=== PATIENT | male | born 1965 | race Caucasian/White ===

== ENCOUNTER 2022-01-05 07:39 | Inpatient (IN) | payer MEDICAID ==
[~2022-01-05] VITALS: Ht 182.9 cm; Wt 118.2 kg
[2022-01-05] VITALS (12 sets, daily range): BP systolic 116–143; BP diastolic 62–84
[2022-01-05 09:16] LABS: BASOPHILS # (AUTO) 0.1 X10'3 (0-0.2); BASOPHILS % (AUTO) 0.3 % (0-1); EOSINOPHILS % (AUTO) 0.2 % (0-6); HEMOGLOBIN 14.5 g/dl (14.0-17.9); LYMPHOCYTES # (AUTO) 1.6 X10'3 (1.1-4.8); LYMPHOCYTES % (AUTO) 8.8 % (21-51); MEAN CORPUSCULAR HEMOGLOBIN 27.8 PG (27.0-31.0); MEAN CORPUSCULAR HGB CONC 32.8 g/dL (33.0-36.5); MEAN CORPUSCULAR VOLUME 84.6 FL (78-98); MEAN PLATELET VOLUME 8.1 FL (7.4-10.4); MONOCYTES # (AUTO) 1.5 X10'3 (0-0.9); MONOCYTES % (AUTO) 8.5 % (2-12); NEUTROPHILS # (AUTO) 14.6 X10'3 (1.8-7.7); NEUTROPHILS % (AUTO) 82.2 % (42-75); PLATELET COUNT 262 X10'3 (140-440); RED BLOOD COUNT 5.21 X10'6 (4.70-6.10); RED CELL DISTRIBUTION WIDTH 15.8 % (11.5-14.5); WHITE BLOOD COUNT 17.8 X10'3 (4.5-11.0)
[2022-01-05 09:29] LABS: ALANINE AMINOTRANSFERASE 26 U/L (12-78); ALBUMIN 3.4 G/DL (3.4-5.0); ALBUMIN/GLOBULIN RATIO 0.7 (1.1-1.5); ALKALINE PHOSPHATASE 85 IU/L (46-116); ANION GAP 14 (8-16); ASPARTATE AMINO TRANSFERASE 19 U/L (10-37); BILIRUBIN,TOTAL 0.8 MG/DL (0.1-1.0); BLOOD UREA NITROGEN 19 MG/DL (7-18); CALCIUM 8.9 MG/DL (8.5-10.1); CHLORIDE 100 MMOL/L (99-107); CREATININE 1.12 MG/DL (0.60-1.10); GLUCOSE 115 MG/DL (70-104); LIPASE 107 U/L (73-393); POTASSIUM 4.1 MMOL/L (3.5-5.1); SODIUM 135 MMOL/L (135-145); TOTAL CARBON DIOXIDE 21.2 MMOL/L (24-32); TOTAL PROTEIN 8.4 G/DL (6.4-8.2); eGFR 67 ML/MIN
[2022-01-05] MEDS ORDERED: ondansetron/PF 4mg/2ml inj IV ONE (10:40)
[2022-01-05] MEDS ORDERED: morphine 4 MG/ML inj SYRINge IV ONE (10:40)
[2022-01-05] MEDS ORDERED: normal saline 1000ml 1,000 ML IV ONE (10:40)
[2022-01-05] MEDS ORDERED: cefoxitin sod inj 2,000 MG in normal saline 100ml IV soln 100 ML IV ONE (11:00)
[2022-01-05] MEDS ORDERED: BUPIVAcaine 0.5% inj/PF 30 ML ONE ×2 (12:18→16:57)
[2022-01-05] MEDS ORDERED: acetaminophen 325mg tablet PO PRN (12:30)
[2022-01-05] MEDS: normal saline 1000ml 1,000 ML IV SCH ×2 (12:30→22:30)
[2022-01-05] MEDS ORDERED: POTASSIUM BICARB 20meq eff tab 20 MEQ TABLET.EFF PO PRN ×2 (12:30)
[2022-01-05] MEDS ORDERED: ondansetron/PF 4mg/2ml inj IV PRN ×3 (12:30→17:15)
[2022-01-05] MEDS ORDERED: magnesium Cl slow-release 64mg tablet PO PRN (12:30)
[2022-01-05] MEDS ORDERED: magnesium hydroxide 30ml (MOM) UD suspension PO PRN (12:30)
[2022-01-05] MEDS ORDERED: mag hydrox/Alum hydrox/simeth 30ml oral suspension PO PRN (12:30)
[2022-01-05] MEDS ORDERED: potassium CL 10mEq/100ml bag 100 ML IV PRN (12:30)
[2022-01-05] MEDS ORDERED: magnesium 4gm in 100ml NS 100 ML IV PRN (12:30)
[2022-01-05] MEDS ORDERED: magnesium 2GM in 50ml NS 50 ML IV PRN (12:30)
[2022-01-05] MEDS ORDERED: BUDE10.2 PO (12:37)
[2022-01-05 12:53] LABS: MAGNESIUM 2.2 MG/DL (1.5-2.4)
[2022-01-05] MEDS: piperacillin/tazo 4.5gm/100ml 100 ML IV SCH (13:00)
[2022-01-05] MEDS ORDERED: meperidine/PF 25mg/ml syringe IV PRN ×3 (15:30)
[2022-01-05] MEDS ORDERED: ringers solution, lacted 1,000 ML IV SCH (15:30)
[2022-01-05] MEDS ORDERED: morphine 2 MG/ML inj. syringe IV PRN (15:30)
[2022-01-05] MEDS ORDERED: morphine 4 MG/ML inj SYRINge IV PRN (15:30)
[2022-01-05] MEDS ORDERED: proCHLORperazine 10 MG/2 ml inj IV PRN (15:30)
[2022-01-05] MEDS ORDERED: midazolam 1 mg/ML 2ml injection ONE (15:34)
[2022-01-05] MEDS ORDERED: fentaNYL /PF 50mcg/ml 5ml ampule ONE (15:34)
[2022-01-05] MEDS ORDERED: rocuronium 10mg/ml inj IV ONE ×2 (15:36→16:52)
[2022-01-05] MEDS ORDERED: propofol inj 20 ML IV ONE (15:36)
[2022-01-05] MEDS ORDERED: LIDOcaine 2% (20mg/ml) 5ml vial ONE (15:36)
[2022-01-05] MEDS ORDERED: sevoflurane 250ml liquid IH ONE (15:53)
[2022-01-05] MEDS ORDERED: dexamethasone sod phosphate 10mg/ml inj ONE (15:53)
[2022-01-05] MEDS ORDERED: acetaminophen 1000 MG/100ml vial IV ONE (15:53)
[2022-01-05 16:29] LABS: CLARITY,URINE SLIGHTLY CLOUDY (Clear); COLOR,URINE YELLOW (Yellow); GLUCOSE, URINE NEGATIVE (Neg); KETONES,URINE >=80 mg/dl (Neg); LEUKOCYTE ESTERASE ,URINE NEGATIVE (Neg); NITRITES, URINE NEGATIVE (Neg); OCCULT BLOOD,URINE NEGATIVE (Neg); PROTEIN,URINE TRACE mg/dl (Neg); UROBILINOGEN,URINE 0.2 E.U/dL (0.2-1.0)
[2022-01-05 16:33] LABS: UA COLLECTION TYPE NON-SPECIFIED
[2022-01-05 16:42] LABS: MUCUS STRANDS MANY /LPF (Neg); SQUAMOUS EPITHELIAL CELL,UR FEW /LPF (FEW)
[2022-01-05 16:43] LABS: BACTERIA,URINE FEW /HPF (Neg); RBC,URINE 0-2 /HPF (0-2); WBC,URINE 0-4 /HPF (0-4)
[2022-01-05] MEDS ORDERED: ondansetron/PF 4mg/2ml inj ONE (16:52)
[2022-01-05] MEDS ORDERED: neostigmine methylsulfate 1 MG/ML 10ml vial ONE (16:52)
[2022-01-05] MEDS ORDERED: glycopyrrolate 0.2mg/ml inj ONE (16:52)
[2022-01-05] MEDS ORDERED: BUPIVACAINE liposomal/PF 13.3 MG/ML vial IM ONE (16:58)
[2022-01-05] MEDS ORDERED: HYDROmorphone inj. 0.5 MG/0.5 ML DISP.SYRIN IV PRN (17:15)
[2022-01-05] MEDS ORDERED: naloxone 0.4 mg/ml inj IV PRN (17:15)
--- NOTE | 2022-01-05 17:28 | NUR ---
Received from OR via SURGICAL BED, accompanied by Anesthesiologist DEMETRIUS and report given by Anesthesiolgist. PATIENT WITH 20G PIV IN LEFT AND RIGHT HAND. LEFT RUNNING LR AT 100. VSS. DENIES PAIN. ABDOMINAL DRESSING IS CDI, LUIS DRAIN IN PLACE. VSS. Addendum: 01/05/22 at 1741 by Godwin Mohan RN, RN Amended: Links added.
--- NOTE | 2022-01-05 17:55 | NUR ---
Patient in room ED 5. I have received report from Godwin MADRID and had the opportunity to ask questions and assume patient care.
--- NOTE | 2022-01-05 18:28 | NUR ---
PATIENT HAS MET ALL CRITERIA FOR TRANSFER TO THE SURGICAL/STEFF/PCU/ORTHO/ICU FLOOR. VSS. DRESSINGS INTACT. BED LOW, CALL LIGHT PRESENT AND 2 RAILS UP. RN PRESENT TO ACCEPT CARE OF PATIENT AND REPORT HAS BEEN CALLED. ALL QUESTIONS ANSWERED TO ACCEPTING RN SHAWNA. ACCOMPANIED TO THE 4TH FLOOR. VSS. ONE BAG OF BELONGINGS SENT WITH PATIENT. Addendum: 01/05/22 at 1832 by Godwin Gatica - [facility] RN Amended: Links added.
--- NOTE | 2022-01-05 18:40 | NUR ---
Patient in room ORTHO 4024. I have received report from Amado MADRID and had the opportunity to ask questions and assume patient care.
[2022-01-05] MEDS: HYDROcodone/acetaminophen 10/325mg tab PO PRN ×2 (18:42→22:34)
--- NOTE | 2022-01-05 18:44 | NUR ---
Problems reprioritized. Patient report given, questions answered & plan of care reviewed with Alisa MADRID.
[2022-01-05] MEDS: K and/or MAG REPLACEMENT MC SCH (20:00)
[2022-01-05] MEDS: docusate sod 100mg capsule PO SCH (20:07)
[2022-01-05] MEDS: potassium CL 20mEq in D5-1/2NS 1,000 ML IV SCH (21:38)
[2022-01-06] MEDS: piperacillin/tazo 4.5gm/100ml 100 ML IV SCH ×3 (00:07→16:49)
[2022-01-06] MEDS: potassium CL 20mEq in D5-1/2NS 1,000 ML IV SCH ×3 (01:15→17:15)
[2022-01-06 02:00] VITALS: BP 127/72
[2022-01-06 06:00] LABS: BASOPHILS % (AUTO) 0.2 % (0-1); EOSINOPHILS % (AUTO) 0 % (0-6); HEMATOCRIT 39.2 % (42.0-52.0); HEMOGLOBIN 12.9 g/dl (14.0-17.9); LYMPHOCYTES # (AUTO) 0.9 X10'3 (1.1-4.8); LYMPHOCYTES % (AUTO) 5.3 % (21-51); MEAN CORPUSCULAR HGB CONC 32.9 g/dL (33.0-36.5); MEAN CORPUSCULAR VOLUME 84.9 FL (78-98); MEAN PLATELET VOLUME 8.3 FL (7.4-10.4); MONOCYTES # (AUTO) 0.9 X10'3 (0-0.9); MONOCYTES % (AUTO) 5.5 % (2-12); NEUTROPHILS # (AUTO) 14.7 X10'3 (1.8-7.7); PLATELET COUNT 241 X10'3 (140-440); RED BLOOD COUNT 4.61 X10'6 (4.70-6.10); RED CELL DISTRIBUTION WIDTH 16.3 % (11.5-14.5); WHITE BLOOD COUNT 16.5 X10'3 (4.5-11.0)
[2022-01-06 06:06] LABS: ALBUMIN 2.6 G/DL (3.4-5.0); ANION GAP 8 (8-16); BLOOD UREA NITROGEN 13 MG/DL (7-18); BUN/CREATININE RATIO 14.3 (5.4-32.0); CALCIUM 8.6 MG/DL (8.5-10.1); CHLORIDE 101 MMOL/L (99-107); CREATININE 0.91 MG/DL (0.60-1.10); GLUCOSE 160 MG/DL (70-104); POTASSIUM 4.1 MMOL/L (3.5-5.1); SODIUM 134 MMOL/L (135-145); eGFR 86 ML/MIN
--- NOTE | 2022-01-06 06:15 | NUR ---
Problems reprioritized. Patient report given, questions answered & plan of care reviewed with SHAWNA rn.
--- NOTE | 2022-01-06 06:38 | NUR ---
Patient in room ORTHO 4024. I have received report from Alisa MADRID and had the opportunity to ask questions and assume patient care.
[2022-01-06 07:07] VITALS: BP 113/66
[2022-01-06] MEDS: K and/or MAG REPLACEMENT MC SCH ×2 (08:00→20:00)
[2022-01-06] MEDS: enoxaparin 40mg/0.4ml syringe SUBCUT SCH (08:23)
[2022-01-06] MEDS: docusate sod 100mg capsule PO SCH ×2 (08:23→20:48)
[2022-01-06] MEDS: normal saline 1000ml 1,000 ML IV SCH ×2 (08:30→21:02)
[2022-01-06 10:00] VITALS: BP 124/71
[2022-01-06] MEDS: HYDROcodone/acetaminophen 10/325mg tab PO PRN (14:29)
[2022-01-06] MEDS: albuterol 2.5 MG/3 ML nebule NEB SCH ×2 (14:53→19:00)
--- NOTE | 2022-01-06 14:53 | NUR ---
PAGER ID: [phone] MESSAGE: Amado Ponce [id number] Re: [id number] Jay Cazares Patient requesting Motrin for headache would you like me add that to PRN list? Thanks
[2022-01-06 15:39] VITALS: BP 125/61
[2022-01-06 18:00] VITALS: BP 109/65
--- NOTE | 2022-01-06 18:35 | NUR ---
Problems reprioritized. Patient report given, questions answered & plan of care reviewed with Alisa MADRID.
--- NOTE | 2022-01-06 18:50 | NUR ---
Patient in room ORTHO 4024. I have received report from Amado Tee and had the opportunity to ask questions and assume patient care.
--- NOTE | 2022-01-06 19:00 | NUR ---
CLD of broth, popsicle and apple juice, Addendum: 01/07/22 at 0526 by Alisa Geiger RN Amended: Links added.
[2022-01-06] MEDS: budesonide 0.5mg/2ml UD nebule IH SCH (20:36)
--- NOTE | 2022-01-06 20:38 | NUR ---
patient denies sob, b/s are clear. he states he uses albuterol 3x a year and would like tx's to be PRN as of now.
[2022-01-06] MEDS: temazepam 15mg capsule PO PRN (21:14)
[2022-01-06 22:00] VITALS: BP 117/60
[2022-01-07] MEDS: piperacillin/tazo 4.5gm/100ml 100 ML IV SCH ×3 (00:27→17:08)
[2022-01-07] MEDS: potassium CL 20mEq in D5-1/2NS 1,000 ML IV SCH ×2 (01:15→17:08)
[2022-01-07] MEDS: HYDROcodone/acetaminophen 10/325mg tab PO PRN ×3 (01:28→21:39)
[2022-01-07] MEDS: normal saline 1000ml 1,000 ML IV SCH ×2 (05:13→14:30)
[2022-01-07 06:00] VITALS: BP 105/68
[2022-01-07 06:01] LABS: BASOPHILS % (AUTO) 0.2 % (0-1); EOSINOPHILS # (AUTO) 0.1 X10'3 (0-0.9); EOSINOPHILS % (AUTO) 0.4 % (0-6); HEMATOCRIT 38.3 % (42.0-52.0); HEMOGLOBIN 12.5 g/dl (14.0-17.9); LYMPHOCYTES # (AUTO) 1.5 X10'3 (1.1-4.8); LYMPHOCYTES % (AUTO) 11.4 % (21-51); MEAN CORPUSCULAR HEMOGLOBIN 27.6 PG (27.0-31.0); MEAN CORPUSCULAR HGB CONC 32.7 g/dL (33.0-36.5); MEAN CORPUSCULAR VOLUME 84.5 FL (78-98); MEAN PLATELET VOLUME 8.5 FL (7.4-10.4); MONOCYTES # (AUTO) 1.1 X10'3 (0-0.9); MONOCYTES % (AUTO) 8.5 % (2-12); NEUTROPHILS # (AUTO) 10.7 X10'3 (1.8-7.7); NEUTROPHILS % (AUTO) 79.5 % (42-75); PLATELET COUNT 240 X10'3 (140-440); RED BLOOD COUNT 4.54 X10'6 (4.70-6.10); WHITE BLOOD COUNT 13.4 X10'3 (4.5-11.0)
--- NOTE | 2022-01-07 06:07 | NUR ---
Problems reprioritized. Patient report given, questions answered & plan of care reviewed with Vanesa MADRID.
[2022-01-07 06:11] LABS: ALBUMIN 2.3 G/DL (3.4-5.0); ANION GAP 4 (8-16); BLOOD UREA NITROGEN 16 MG/DL (7-18); BUN/CREATININE RATIO 16.3 (5.4-32.0); CALCIUM 8.2 MG/DL (8.5-10.1); CHLORIDE 104 MMOL/L (99-107); CREATININE 0.98 MG/DL (0.60-1.10); GLUCOSE 113 MG/DL (70-104); POTASSIUM 3.9 MMOL/L (3.5-5.1); SODIUM 133 MMOL/L (135-145); TOTAL CARBON DIOXIDE 25.2 MMOL/L (24-32); eGFR 79 ML/MIN
--- NOTE | 2022-01-07 06:20 | NUR ---
Patient in room ORTHO 4024a. I have received report from [facility] Cuellar, and had the opportunity to ask questions and assume patient care.
--- NOTE | 2022-01-07 06:45 | NUR ---
Patient in room ORTHO 4024. I have received report from [facility] Cuellar and had the opportunity to ask questions and assume patient care.
[2022-01-07] MEDS: budesonide 0.5mg/2ml UD nebule IH SCH ×2 (07:26→20:15)
[2022-01-07] MEDS: albuterol 2.5 MG/3 ML nebule NEB SCH (07:27)
[2022-01-07] MEDS: K and/or MAG REPLACEMENT MC SCH ×2 (08:00→20:00)
[2022-01-07] MEDS: enoxaparin 40mg/0.4ml syringe SUBCUT SCH (08:55)
[2022-01-07] MEDS: docusate sod 100mg capsule PO SCH ×2 (08:55→21:38)
[2022-01-07 10:00] VITALS: BP 115/71
[2022-01-07] MEDS: pantoprazole 40mg Tablet.DR PO SCH (12:28)
--- NOTE | 2022-01-07 15:30 | NUR ---
Dressing on abd changed and packing DC'd. Midline incision w/ anibal is well approximated w/ scant sero-sang drainage present. Wd redressed w/ ABD pad, and gauze at drain site, all secured w/ paper tape. Pt rebecca well.
--- NOTE | 2022-01-07 18:30 | NUR ---
Reported given to [facility] Cuellar.
--- NOTE | 2022-01-07 18:30 | NUR ---
Patient in room ORTHO 4024. I have received report from Vanesa MADRID and had the opportunity to ask questions and assume patient care.
[2022-01-07 19:00] VITALS: BP 138/85
[2022-01-07] MEDS: temazepam 15mg capsule PO PRN (21:38)
[2022-01-07 22:00] VITALS: BP 134/77
[2022-01-08] MEDS: normal saline 1000ml 1,000 ML IV SCH (00:30)
[2022-01-08] MEDS: piperacillin/tazo 4.5gm/100ml 100 ML IV SCH ×3 (00:58→15:38)
[2022-01-08] MEDS: potassium CL 20mEq in D5-1/2NS 1,000 ML IV SCH ×4 (01:15→19:45)
[2022-01-08 06:00] VITALS: BP 104/74
--- NOTE | 2022-01-08 07:00 | NUR ---
Report given to Vanesa.
[2022-01-08 07:12] LABS: BASOPHILS # (AUTO) 0.1 X10'3 (0-0.2); BASOPHILS % (AUTO) 0.5 % (0-1); EOSINOPHILS # (AUTO) 0.7 X10'3 (0-0.9); EOSINOPHILS % (AUTO) 6.7 % (0-6); HEMATOCRIT 36.6 % (42.0-52.0); LYMPHOCYTES # (AUTO) 2.1 X10'3 (1.1-4.8); LYMPHOCYTES % (AUTO) 20.3 % (21-51); MEAN CORPUSCULAR HEMOGLOBIN 27.9 PG (27.0-31.0); MEAN CORPUSCULAR HGB CONC 32.9 g/dL (33.0-36.5); MEAN CORPUSCULAR VOLUME 84.8 FL (78-98); MEAN PLATELET VOLUME 8.2 FL (7.4-10.4); MONOCYTES % (AUTO) 9.8 % (2-12); NEUTROPHILS # (AUTO) 6.4 X10'3 (1.8-7.7); NEUTROPHILS % (AUTO) 62.7 % (42-75); PLATELET COUNT 243 X10'3 (140-440); RED BLOOD COUNT 4.31 X10'6 (4.70-6.10); RED CELL DISTRIBUTION WIDTH 15.8 % (11.5-14.5); WHITE BLOOD COUNT 10.2 X10'3 (4.5-11.0)
[2022-01-08 07:41] LABS: ALBUMIN 2.3 G/DL (3.4-5.0); ANION GAP 7 (8-16); BLOOD UREA NITROGEN 11 MG/DL (7-18); BUN/CREATININE RATIO 11.8 (5.4-32.0); CALCIUM 7.9 MG/DL (8.5-10.1); CHLORIDE 105 MMOL/L (99-107); CREATININE 0.93 MG/DL (0.60-1.10); GLUCOSE 111 MG/DL (70-104); POTASSIUM 3.6 MMOL/L (3.5-5.1); SODIUM 135 MMOL/L (135-145); TOTAL CARBON DIOXIDE 23.4 MMOL/L (24-32); eGFR 83 ML/MIN
[2022-01-08] MEDS: pantoprazole 40mg Tablet.DR PO SCH (08:00)
[2022-01-08] MEDS: K and/or MAG REPLACEMENT MC SCH ×2 (08:00→20:00)
[2022-01-08] MEDS: enoxaparin 40mg/0.4ml syringe SUBCUT SCH (08:00)
[2022-01-08] MEDS: docusate sod 100mg capsule PO SCH ×2 (08:00→19:13)
[2022-01-08] MEDS: albuterol 2.5 MG/3 ML nebule NEB SCH ×2 (08:00→20:04)
[2022-01-08] MEDS: HYDROcodone/acetaminophen 10/325mg tab PO PRN ×2 (08:04→21:45)
[2022-01-08] MEDS: budesonide 0.5mg/2ml UD nebule IH SCH ×2 (08:44→20:05)
[2022-01-08] MEDS ORDERED: HYDROcodone/acetaminophen 5mg/325mg tablet PO PRN (09:40)
[2022-01-08 10:00] VITALS: BP 110/63
[2022-01-08 18:00] VITALS: BP 118/67
[2022-01-08] MEDS: magnesium hydroxide 30ml (MOM) UD suspension PO SCH (19:13)
[2022-01-08] MEDS: amox tr/potassium clavulanate 875/125mg TAB PO SCH (19:13)
[2022-01-08 22:00] VITALS: BP 136/71
--- NOTE | 2022-01-09 03:51 | NUR ---
pt reports flatus, small amount, after walk.
--- NOTE | 2022-01-09 05:48 | NUR ---
pt voids ad citlalli
[2022-01-09 06:00] VITALS: BP 155/86
--- NOTE | 2022-01-09 06:20 | NUR ---
RECEIVED REPORT FROM [facility] RICKS
--- NOTE | 2022-01-09 06:28 | NUR ---
pt had BM and is walking the halls. reported to days. anticipate discharge today.
[2022-01-09] MEDS: HYDROcodone/acetaminophen 10/325mg tab PO PRN ×2 (06:34→11:03)
[2022-01-09] MEDS: docusate sod 100mg capsule PO SCH (07:16)
[2022-01-09] MEDS: enoxaparin 40mg/0.4ml syringe SUBCUT SCH (07:19)
[2022-01-09] MEDS: magnesium hydroxide 30ml (MOM) UD suspension PO SCH (07:19)
[2022-01-09] MEDS: pantoprazole 40mg Tablet.DR PO SCH (07:19)
[2022-01-09 07:30] LABS: ALBUMIN 2.7 G/DL (3.4-5.0); ANION GAP 8 (8-16); BLOOD UREA NITROGEN 7 MG/DL (7-18); BUN/CREATININE RATIO 7.4 (5.4-32.0); CHLORIDE 105 MMOL/L (99-107); CREATININE 0.95 MG/DL (0.60-1.10); GLUCOSE 97 MG/DL (70-104); SODIUM 140 MMOL/L (135-145); TOTAL CARBON DIOXIDE 26.6 MMOL/L (24-32); eGFR 81 ML/MIN
[2022-01-09 07:33] LABS: POTASSIUM 4.1 MMOL/L (3.5-5.1)
[2022-01-09] MEDS ORDERED: magnesium hydroxide 30ml (MOM) UD suspension PO SCH (08:00)
[2022-01-09] MEDS: K and/or MAG REPLACEMENT MC SCH (08:00)
[2022-01-09] MEDS: amox tr/potassium clavulanate 875/125mg TAB PO SCH (08:16)
[2022-01-09 08:30] LABS: BASOPHILS # (AUTO) 0.1 X10'3 (0-0.2); BASOPHILS % (AUTO) 0.7 % (0-1); EOSINOPHILS # (AUTO) 0.7 X10'3 (0-0.9); EOSINOPHILS % (AUTO) 6.1 % (0-6); HEMATOCRIT 40.2 % (42.0-52.0); LYMPHOCYTES # (AUTO) 2.4 X10'3 (1.1-4.8); LYMPHOCYTES % (AUTO) 22.5 % (21-51); MEAN CORPUSCULAR HEMOGLOBIN 27.3 PG (27.0-31.0); MEAN CORPUSCULAR HGB CONC 32.3 g/dL (33.0-36.5); MEAN CORPUSCULAR VOLUME 84.6 FL (78-98); MONOCYTES # (AUTO) 1.3 X10'3 (0-0.9); MONOCYTES % (AUTO) 11.8 % (2-12); NEUTROPHILS # (AUTO) 6.4 X10'3 (1.8-7.7); NEUTROPHILS % (AUTO) 58.9 % (42-75); PLATELET COUNT 345 X10'3 (140-440); RED BLOOD COUNT 4.76 X10'6 (4.70-6.10); RED CELL DISTRIBUTION WIDTH 15.6 % (11.5-14.5); WHITE BLOOD COUNT 10.8 X10'3 (4.5-11.0)
[2022-01-09] MEDS: budesonide 0.5mg/2ml UD nebule IH SCH (09:08)
[2022-01-09] MEDS: albuterol 2.5 MG/3 ML nebule NEB SCH (09:08)
--- NOTE | 2022-01-09 11:55 | NUR ---
Initial: Pt admitted w/ acute appendicitis, s/p open appendectomy this admit per EMR. Previously on Clear liquids since 01/05, now on Fulls since 01/08 w/ ~50-75% intake of meals. Recommend advancing to Regular diet as tolerated. Pt had a BM this morning per RN notes. May consider Chetan once diet advanced. Will continue to monitor. Recs: 1. Advance to Regular diet as tolerated 2. Consider Chetan once diet advanced for wound healing needs 3. Bowel care per rx 4. Weekly wts Addendum: 01/09/22 at [address] Amended: Links added.
[2022-01-09] MEDS ORDERED: DOCU100C40 PO (12:46)
[2022-01-09] MEDS ORDERED: AMOX-580 PO (12:46)
[2022-01-09] MEDS ORDERED: HYDR-3965 PO (12:46)
--- NOTE | 2022-01-09 15:19 | NUR ---
Pt d/c'd with instructions, understanding of instructions, with all belongings, in , accompanied by nursing staff to private vehicle , to FU with PCP.
== END 2022-01-09 14:20 | disposition home or self-care (01) | DRG 233 ==
LOC: ER 07:40 → ED HOLD 12:32 → ORTHO 4S 18:30
PROVIDERS: ADMIT Family Medicine; ATTEND Family Medicine
PROC: 0WJG4ZZ Inspection of Peritoneal Cavity, Percutaneous Endoscopic Approach (ICD-10-PCS; 2022-01-05)
PROC: 3E0T3BZ Introduction of Anesthetic Agent into Peripheral Nerves and Plexi, Percutaneous Approach (ICD-10-PCS; 2022-01-05)
PROC: 3E0T33Z Introduction of Anti-inflammatory into Peripheral Nerves and Plexi, Percutaneous Approach (ICD-10-PCS; 2022-01-05)
PROC: 0DTJ0ZZ Resection of Appendix, Open Approach (ICD-10-PCS; principal; 2022-01-05 15:32)
DX: K35.32 Acute appendicitis with perforation, localized peritonitis, and gangrene, without abscess (principal); J45.909 Unspecified asthma, uncomplicated; Z20.822 Contact with and (suspected) exposure to COVID-19; Z79.899 Other long term (current) drug therapy
CPT/HCPCS: 36415; 71045; 74176; 80048; 80053; 81001; 83690; 83735; 85025; 86885; 86900; 86901; 87081; 87635; 93005; 94640; 94760; 99285; A4215; A4314; A4618; A6253; A6407; A6449; A7000; C9290; C9803; G0378; J0131; J0694; J1100; J1170; J1650; J2175; J2250; J2270; J2405; J2543; J2704; J2710; J3010; J3480; J3490; J7030; J7120; S0020